=== PATIENT | female | born 1995 | race Caucasian/White ===

== ENCOUNTER 2019-06-27 08:32 | Emergency (ER) | payer OTHER ==
[~2019-06-27] VITALS: Ht 157.5 cm; Wt 93.0 kg
[~2019-06-27 08:32] MED LIST: CEFDINIR300 MG PO; SINGULAIR 10MG10 MG PO; TESSALON200 MG PO; ZYRTEC10 M3 PO
== END 2019-06-27 14:46 | disposition home or self-care (01) ==
LOC: ER 08:32
DX: K29.70 Gastritis, unspecified, without bleeding (principal)

== ENCOUNTER 2019-10-08 16:18 | Emergency (ER) | payer OTHER ==
[~2019-10-08] VITALS: Ht 157.5 cm; Wt 80.7 kg
[2019-10-08] MEDS ORDERED: PRILOSEC OTC20 MG (16:28)
[2019-10-08] MEDS ORDERED: BENTYL10 MG/1 ML (16:28)
[2019-10-08] MEDS ORDERED: ZANTAC150 MG (16:29)
== END 2019-10-08 19:43 | disposition home or self-care (01) ==
LOC: ER 16:18
DX: K29.70 Gastritis, unspecified, without bleeding (principal); K59.09 Other constipation

== ENCOUNTER 2022-08-05 07:45 | Emergency (ER) | payer OTHER ==
[~2022-08-05] VITALS: Ht 160 cm; Wt 64.4 kg
[~2022-08-05 07:45] MED LIST changes: +BENTYL10 MG/1 ML; +PRILOSEC OTC20 MG; +ZANTAC150 MG
[2022-08-05] MEDS ORDERED: ACID REDUCER20 M1 PO (08:04)
== END 2022-08-05 10:58 | disposition home or self-care (01) ==
LOC: ER 07:45
DX: B34.9 Viral infection, unspecified (principal); J45.909 Unspecified asthma, uncomplicated; K31.1 Adult hypertrophic pyloric stenosis

== ENCOUNTER → 2023-04-16 | Emergency (ER) | payer OTHER ==
[~2023-04-16] VITALS: Ht 162.6 cm; Wt 71.2 kg
[~2023-04-16] MED LIST changes: +ACID REDUCER20 M1 PO; +MELOXICAM15 MG PO; +NORFLEX100MG PO
== END | disposition home or self-care (01) ==
LOC: ER 04:28
DX: M54.50 Low back pain, unspecified (principal); M54.2 Cervicalgia